=== PATIENT | female | born 1980 ===

== ENCOUNTER 2017-12-03 07:11 | Day surgery (SDC) | payer OTHER ==
[2017-12-03] MEDS ORDERED: Lactated Ringer's 500 ML IV ONE (07:59)
[2017-12-03 08:09] VITALS: TEMP 96.9; O2SAT 100
[2017-12-03] MEDS ORDERED: Propofol 10 mg/ml Inj (20 ML) ONE (08:50)
[2017-12-03 09:20] VITALS: BP 102/67; PULSE 71; RESP 12
== END 2017-12-03 09:27 | disposition home or self-care (01) ==
LOC: H.ENDO 07:11
PROVIDERS: ATTEND Internal Medicine Gastroenterology
DX: K31.89 Other diseases of stomach and duodenum (principal); K44.9 Diaphragmatic hernia without obstruction or gangrene; K29.50 Unspecified chronic gastritis without bleeding; R12 Heartburn
CPT/HCPCS: 43239; 88305; J2001; J2704; J7120